=== PATIENT | male | born 1975 | race Caucasian/White ===

== ENCOUNTER 2017-11-16 09:15 | Inpatient (IN) | payer OTHER ==
[~2017-11-16] VITALS: Ht 180.3 cm; Wt 99.8 kg
[~2017-11-16 09:15] MED LIST: PERCOCET 5-3251 EACH PO; RECTICARE30 GM RECTAL
[2017-11-25] MEDS ORDERED: NEURONTIN300 MG PO (13:49)
[2017-11-25] MEDS ORDERED: POLY119PG PO (13:49)
[2017-11-25] MEDS ORDERED: PERCOCET 5-3251 EACH PO (13:49)
== END 2017-11-25 15:20 | disposition home or self-care (01) | DRG 355 ==
LOC: SURG 11-24 09:15 → O/R 11-24 09:17 → SURH 11-24 09:17 → SURG 11-24 10:00 → SURH 11-24 21:15
PROVIDERS: Surgery
PROC: 0JX80ZZ Transfer Abdomen Subcutaneous Tissue and Fascia, Open Approach (ICD-10-PCS; 2017-11-24)
PROC: 0WUF4JZ Supplement Abdominal Wall with Synthetic Substitute, Percutaneous Endoscopic Approach (ICD-10-PCS; principal; 2017-11-24 10:00)
DX: K43.0 Incisional hernia with obstruction, without gangrene (principal); K42.0 Umbilical hernia with obstruction, without gangrene